=== PATIENT | female | born 1990 | race Caucasian/White ===

== ENCOUNTER → 2017-09-28 | Outpatient (CLI) | payer OTHER ==
[~2017-09-28] MED LIST: FIORICET 325 MG1 TA1 PO; GLUCOPHAGE500 MG/TAB PO; NORCO 325 MG-51 TAB PO; PRINIVIL5 MG PO; TOPAMAX 100MG100 M1 PO; ULTRAM 50MG TAB50 MG PO
== END ==
LOC: COL.RAD 08:18
DX: G93.2 Benign intracranial hypertension (principal)
CPT/HCPCS: Q9967

== ENCOUNTER → 2019-02-27 | Outpatient (CLI) | payer BC | LOC: MHCPAIN 13:36 | DX: G89.29 Other chronic pain (principal); M47.817 Spondylosis without myelopathy or radiculopathy, lumbosacral region; M54.16 Radiculopathy, lumbar region; M53.3 Sacrococcygeal disorders, not elsewhere classified | CPT/HCPCS: G0463 ==

== ENCOUNTER → 2019-03-13 | Outpatient (CLI) | payer BC ==
--- NOTE | 2019-03-08 09:09 | NUR ---
LMOM TO CALL BACK
[~2019-03-13] VITALS: Ht 167.6 cm; Wt 106.2 kg
[~2019-03-13] MED LIST changes: +EFFEXOR-XR150 MG PO; +NEURONTIN100 MG/CAP PO; +XANAX 0.5MG0.5 MG PO
[2019-03-13 14:03] VITALS: BP 127/77; PULSE 75
[2019-03-13 14:35] VITALS: BP 124/79; PULSE 81
== END ==
LOC: COL.RAD 13:30
DX: M48.061 Spinal stenosis, lumbar region without neurogenic claudication (principal); M51.26 Other intervertebral disc displacement, lumbar region; M51.36 Other intervertebral disc degeneration, lumbar region
CPT/HCPCS: J3301

== ENCOUNTER 2019-09-07 13:43 | Emergency (ER) | payer BC ==
[~2019-09-07] VITALS: Ht 167.6 cm; Wt 109.1 kg
[2019-09-07 14:36] LABS: BASO % 0.7 % (0.0-2.0); EOS # 0.1 (0.0-0.7); EOS % 1.4 % (0-4.0); GRAN % 68.6 % (42.2-75.2); HEMATOCRIT 44.7 % (37.0-47.0); HEMOGLOBIN 14.8 g/dl (12.5-16.0); LYMPH # 1.2 (1.2-3.4); LYMPH % 20.1 % (20.0-51.0); MEAN CELL VOLUME 89 fl (80.0-100.0); MEAN CORPUSCULAR HEMOGLOBIN 29 pg (27.0-31.0); MEAN CORPUSCULAR HGB CONC 33 g/dl (33.0-37.0); MEAN PLATELET VOLUME 9.4 fl (7.4-10.4); MONO # 0.5 (0.1-0.6); MONO % 8.7 % (1.7-9.3); PLATELET COUNT 228 K/mm3 (130-400); RED BLOOD COUNT 5.05 M/mm3 (4.10-5.30); REDCELL DISTRIBUTION WIDTH-CV 12.2 % (11.5-14.5)
[2019-09-07 14:47] LABS: ALANINE AMINOTRANSFERASE 48 U/L (9-52); ALBUMIN 4.6 gm/dL (3.5-5.0); ALKALINE PHOSPHATASE 90 U/L (50-136); ANION GAP 9 mmol/L (7-16); AST,SGOT 33 U/L (15-37); BILIRUBIN,TOTAL 0.4 mg/dL (0.0-1.0); BLOOD UREA NITROGEN 18 mg/dL (7-17); CALCIUM 9.5 mg/dL (8.4-10.2); CARBON DIOXIDE 24 mmol/L (22-30); CHLORIDE 108 mmol/L (98-107); CREATININE, serum 0.99 (0.52-1.25); GLUCOSE 106 mg/dL (74-106); POTASSIUM 3.6 mmol/L (3.4-5.0); SODIUM 140 mmol/L (137-145); TOTAL PROTEIN 8.1 gm/dL (6.4-8.2)
[2019-09-07 14:54] LABS: COLLECTION METHOD CLEAN CATCH
[2019-09-07 14:54] LABS: ACETAMINOPHEN < 10 ug/mL (10-30); ALCOHOL(ethanol),MEDICAL < 10 mg/dL; SALICYLATE < 1.0 mg/dL
[2019-09-07 15:11] LABS: PH 5 (5-8); SQUAMOUS EPITHELIAL 0-2 /hpf; URINE APPEARANCE Clear; URINE BACTERIA Rare /hpf; URINE BILIRUBIN Negative (NEGATIVE); URINE BLOOD Negative (NEGATIVE); URINE COLOR Straw; URINE GLUCOSE Negative (NEGATIVE); URINE KETONE Negative (NEGATIVE); URINE LEUKOCYTE ESTERASE Trace (NEGATIVE); URINE NITRATE Negative (NEGATIVE); URINE PROTEIN(semi-quant) Negative (NEGATIVE); URINE RBC 0-2 /hpf; URINE UROBILINOGEN Negative (NEGATIVE)
[2019-09-07 15:15] LABS: TRICYCLIC ANTIDEPRESS URINE NEGATIVE
[2019-09-07 17:49] VITALS: BP 131/98; PULSE 77
[2019-09-07 21:40] VITALS: TEMP 98.9
== END 2019-09-07 21:43 ==
LOC: COL.ER 13:43
PROVIDERS: Emergency Medicine
DX: R45.851 Suicidal ideations (principal); F32.9 Major depressive disorder, single episode, unspecified; E11.9 Type 2 diabetes mellitus without complications; F41.9 Anxiety disorder, unspecified; Z79.84 Long term (current) use of oral hypoglycemic drugs

== ENCOUNTER 2020-01-11 18:39 | Emergency (ER) | payer BC ==
[~2020-01-11] VITALS: Ht 165.1 cm; Wt 134.1 kg
[2020-01-11 18:49] VITALS: TEMP 98
[2020-01-11 19:54] LABS: BASO # 0.1 (0.0-0.2); BASO % 0.7 % (0.0-2.0); EOS # 0.1 (0.0-0.7); EOS % 1.4 % (0-4.0); GRAN % 56.7 % (42.2-75.2); HEMATOCRIT 44.5 % (37.0-47.0); HEMOGLOBIN 14.3 g/dl (12.5-16.0); LYMPH # 2.2 (1.2-3.4); LYMPH % 31.1 % (20.0-51.0); MEAN CELL VOLUME 83 fl (80.0-100.0); MEAN CORPUSCULAR HEMOGLOBIN 27 pg (27.0-31.0); MEAN CORPUSCULAR HGB CONC 32 g/dl (33.0-37.0); MEAN PLATELET VOLUME 9.6 fl (7.4-10.4); MONO # 0.7 (0.1-0.6); MONO % 9.7 % (1.7-9.3); PLATELET COUNT 287 K/mm3 (130-400); RED BLOOD COUNT 5.37 M/mm3 (4.10-5.30); REDCELL DISTRIBUTION WIDTH-CV 13.9 % (11.5-14.5)
[2020-01-11 20:07] LABS: ALANINE AMINOTRANSFERASE 18 U/L (4-34); ALBUMIN 4.3 gm/dL (3.5-5.0); ALKALINE PHOSPHATASE 90 U/L (50-136); ANION GAP 8 mmol/L (7-16); AST,SGOT 21 U/L (15-37); BILIRUBIN,TOTAL 0.4 mg/dL (0.0-1.0); BLOOD UREA NITROGEN 16 mg/dL (7-17); CALCIUM 9.8 mg/dL (8.4-10.2); CARBON DIOXIDE 25 mmol/L (22-30); CHLORIDE 106 mmol/L (98-107); CREATININE, serum 1.17 (0.52-1.25); GLUCOSE 111 mg/dL (74-106); POTASSIUM 4.1 mmol/L (3.4-5.0); SODIUM 139 mmol/L (137-145); TOTAL PROTEIN 7.9 gm/dL (6.4-8.2)
[2020-01-11 20:25] LABS: C-REACTIVE PROTEIN < 0.5 mg/dL (0.0-0.9); TROPONIN-I < 0.012 ng/mL (0.000-0.035)
[2020-01-11 21:10] VITALS: BP 124/78; PULSE 84
== END 2020-01-11 21:10 | disposition home or self-care (01) ==
LOC: COL.ER 18:39
PROVIDERS: Nurse Practitioner
DX: R07.89 Other chest pain (principal); F32.9 Major depressive disorder, single episode, unspecified; I10 Essential (primary) hypertension; E78.5 Hyperlipidemia, unspecified; F41.9 Anxiety disorder, unspecified; Z90.89 Acquired absence of other organs; Z87.891 Personal history of nicotine dependence; Z79.84 Long term (current) use of oral hypoglycemic drugs
CPT/HCPCS: J7030

== ENCOUNTER → 2020-02-13 | Outpatient (CLI) | payer BC | LOC: COL.RAD 12:33 | DX: R91.1 Solitary pulmonary nodule (principal); R07.1 Chest pain on breathing | CPT/HCPCS: Q9967 ==

== ENCOUNTER 2022-10-15 14:15 | Outpatient (RCR) | payer OTHER, BC ==
[~2022-10-15 14:15] MED LIST changes: +ATARAX 25MG25 MG/TAB PO; +KLONOPIN 1MG1 MG PO; +LUNESTA2 MG PO; +VIIBRYD40 MG PO; +WELLBUTRIN XL150 MG PO; +[UNRECOGNIZED DRUG - OTHER] PO
== END 2022-10-20 | disposition home or self-care (01) ==
LOC: WSPT
DX: M54.16 Radiculopathy, lumbar region (principal)

== ENCOUNTER → 2022-11-04 | Outpatient (REF) | payer BC ==
[~2022-11-04] MED LIST changes: +OMNICEF 300MG300 MG PO; +PHENERGAN25 MG RC
[2022-11-04 13:14] LABS: LYMPHOCYTE 31 % (20.0-51.0); NEUTROPHILS 60 % (42.0-75.2)
[2022-11-04 13:19] LABS: HYPOCHROMIA 1+; PLATELET ESTIMATE NORMAL (NORMAL)
== END ==
LOC: ZCOL.LAB 12:41
PROVIDERS: Family Medicine
DX: D50.0 Iron deficiency anemia secondary to blood loss (chronic) (principal)

== ENCOUNTER 2022-11-10 12:45 | Outpatient (RCR) | payer OTHER, BC ==
[~2022-11-10 12:45] MED LIST changes: +BACTRIM DS 8001 TAB PO; +PHENERGAN 25 TA25 MG PO; +TRANSDERM-0.5 MG/21 TD; +VRAYLAR3 MG PO; +ZOFRAN ODT4 MG PO; -[UNRECOGNIZED DRUG - OTHER] PO
[2022-11-11] MEDS ORDERED: VITAMIN D250 MCG PO (13:37)
[2022-11-14] MEDS ORDERED: ERY-TAB250 MG PO (10:13)
== END 2022-11-20 | disposition home or self-care (01) ==
LOC: WSC
DX: M54.16 Radiculopathy, lumbar region (principal)

== ENCOUNTER → 2022-11-23 | Outpatient (REF) | payer OTHER, BC ==
[~2022-11-23] MED LIST changes: +ERY-TAB250 MG PO; +VITAMIN D250 MCG PO
== END ==
LOC: ZCOL.LAB 11:30
DX: R07.82 Intercostal pain (principal); R06.02 Shortness of breath; R53.83 Other fatigue

== ENCOUNTER → 2023-09-30 | Outpatient (REF) | payer BC ==
[2023-09-30 11:48] LABS: BAND 1 % (0-10); EOSINOPHIL 3 % (0-4); LYMPHOCYTE 28 % (20.0-51.0); NEUTROPHILS 61 % (42.0-75.2); PLATELET ESTIMATE NORMAL (NORMAL)
== END ==
LOC: ZCOL.LAB 10:13
PROVIDERS: Family Medicine
DX: D50.0 Iron deficiency anemia secondary to blood loss (chronic) (principal)

== ENCOUNTER → 2024-02-15 | Outpatient (CLI) | payer BC ==
[~2024-02-15] MED LIST changes: +REVIA 50MG TABL50 MG PO; +SLYND4 MG PO; +VITAMIN D 50,1.25 MG PO
== END ==
LOC: MC.RAD 16:14
DX: Z12.31 Encounter for screening mammogram for malignant neoplasm of breast (principal)

== ENCOUNTER 2024-05-02 11:55 | Day surgery (SDC) | payer BC ==
--- NOTE | 2024-05-01 14:45 | NUR ---
1445: SPOKE WITH NANCY HI REGARDING SUICIDE SCREEN (C-SSRS) COMPLETED OVER THE PHONE TODAY (SEE ADULT ADMIT INTAKE). PATIENT ANSWERED YES TO LIFETIME QUESTION FOR EVER PREPARING TO END LIFE, PATIENT STATED THIS WAS "YEARS AGO". PATIENT ANSWERED "YES" WHEN ASKED IF SHE FELT SHE WAS RECEIVING ADEQUATE MENTAL HEALTH SERVICES CURRENTLY AND ANSWERED "YES" WHEN ASKED IF SHE FELT SAFE AT HOME. PER NANCY HI HE WOULD PREFER IF THE PATIENT'S PRIMARY CARE PROVIDER (DR.BETHANY BRAY) COMPLETE A SUICIDE RISK ASSESSMENT. 1454: CALL PLACED TO 'S OFFICE. UNABLE TO REACH PROVIDER. VOICEMAIL LEFT ON 'S NURSE LINE TO ADDRESS SITUATION. OUTPATIENT SURGERY NURSES STATION NUMBER PROVIDED FOR QUESTIONS. 1458: UPDATED HAND INSPECTOR ZOHREH Youngblood RN ON C-SSRS RESULTS AND CALLS PLACED TO PROVIDERS (NANCY HI AND 'S OFFICE). 1531: ANSWERED CALL FROM 'S OFFICE. PER , PATIENT HAS BEEN SEEN BY PROVIDER RECENTLY AND IS DEEMED LOW SUICIDE RISK. ANTOINE COFFEY WITH VERBALIZED THAT SHE WILL FAX A NOTE OVER STATING THIS FOR THE PATIENT'S CHART.
--- NOTE | 2024-05-01 15:49 | NUR ---
It is noted from staff that patient scored Moderate on her initial suicidal screening evaluation. Discussion had with Yordy CRUZ for Dr. Faria who requested that PCP make that decision of sucidal risk, Avery Mondragon RN spoke to PCP office who stated that patient was a low risk and was currently being treated appropriately outpatient. This RN called to speak to Yordy CRUZ to discuss low risk for suicide per PCP and at that time he gave a verbal order to keep the patient as a low suicide risk patient. Staff notified; will monitor upon arrival to facility.
[~2024-05-02] VITALS: Ht 165.1 cm; Wt 165.1 kg
[~2024-05-02 11:55] MED LIST changes: +LR 1,000 ML IV SCH; -REVIA 50MG TABL50 MG PO; -SLYND4 MG PO; -VITAMIN D 50,1.25 MG PO
[2024-05-02] MEDS ORDERED: fentaNYL 50 MCG/ML 5 ML VIAL ONE ×2 (13:48→15:17)
[2024-05-02] MEDS ORDERED: Lidocaine PF 2% (20 MG/ML) 5 ML VIAL ONE (13:48)
[2024-05-02] MEDS ORDERED: dexAMETHasone 10 MG/ML VIAL ONE (13:48)
[2024-05-02] MEDS ORDERED: Ketorolac 30 MG/ML VIAL ONE (13:48)
[2024-05-02] MEDS ORDERED: Ondansetron 4 MG/2 ML VIAL ONE (13:48)
[2024-05-02] MEDS ORDERED: NS 20 ML IV ONE (13:48)
[2024-05-02] MEDS ORDERED: Morphine 2 MG/1 ML VIAL [PACU/SDC ONLY] IV PRN (14:15)
[2024-05-02] MEDS ORDERED: fentaNYL 50 MCG/ML 1 ML SYRINGE/VIAL [PACU/SDC ONLY] IV PRN (14:15)
[2024-05-02] MEDS ORDERED: Ondansetron 4 MG/2 ML VIAL IV PRN (14:15)
[2024-05-02] MEDS ORDERED: hydrALAZINE 20 MG/ML 1 ML VIAL IV PRN (14:15)
[2024-05-02] MEDS ORDERED: droPERidol 2.5 MG/ML 2 ML VIAL IV PRN (14:15)
[2024-05-02] MEDS ORDERED: HYDROmorphone 1 MG/1 ML SYRINGE [PACU/SDC ONLY] IV PRN (14:15)
[2024-05-02] MEDS ORDERED: Meperidine 50 MG/ML 1 ML VIAL IV PRN (14:15)
[2024-05-02] MEDS ORDERED: VITAMIN D 50,1.25 MG PO (14:21)
[2024-05-02] MEDS ORDERED: REVIA 50MG TABL50 MG PO (14:21)
[2024-05-02] MEDS ORDERED: SLYND4 MG PO (14:22)
[2024-05-02 14:32] VITALS: BP 141/94; PULSE 94; TEMP 97.1
[2024-05-02] MEDS ORDERED: SUFentanil 50 MCG/1 ML VIAL IV ONE (15:31)
[2024-05-02 17:00] VITALS: BP 153/85; PULSE 80; TEMP 97.4
[2024-05-02 17:03] VITALS: TEMP 98.4
--- NOTE | 2024-05-02 17:10 | NUR ---
TELEPHONE ORDER RECEIVED FROM NANCY HI PER DR VORA FOR PT TO RECEIVE NORCO 5/325 PO 1 TAB BEFORE DISCHARGE.
[2024-05-02 17:15] VITALS: BP 161/86; PULSE 72
[2024-05-02 17:30] VITALS: BP 134/89; PULSE 74
--- NOTE | 2024-05-02 17:50 | NUR ---
1700 RETURNS TO ROOM 7 PER CART WITH HOB ELEVATED 60 DEGREES. AWAKE, AELRT RESP UNLABORED. VITAL SIGNA OBTAINED. GAGAN WRAPPED DRESSING RIGHT ARM CLEAN DRY AND INTACT. NEURO/CIRC CHECKS INTACT. SLIGHT EDEMA OF FINGERS. MOVES FINGERS WELL. REPORTS MILD DISCOMFORT 4/10. CALL LIGHT AT SIDE 1715 TOLERATES PO WATER AND JUICE WITHOUT NAUSEA. 1718 PO PAIN PILL (NORCO 5/325) GIVEN. PHONE ORDER RECEIVED BY ROBB COLE. UNABLE TO DOCUMENT IN COMPUTER SECONDARY TO DR VORA BE "ON DEVICE". 1725 DISCHARGE IBNSTRUCTIONS REVIEWED. PATIENT VERBALIZES UNDERSTANDING. COPY PROVIDED IN DISCHARGE FOLDER. 1740 SITS ON EDGE OF CART. DRESSES WITH ASSIST FROM THIS NURSE. SLING IN PLACE TO RIGHT ARM. GAGAN WRAPPED DRESSING CLEAN DRY AND INTACT.
== END 2024-05-02 17:50 | disposition home or self-care (01) ==
LOC: SDCO 11:55
PROVIDERS: Orthopaedic Surgery Sports Medicine
DX: G56.21 Lesion of ulnar nerve, right upper limb (principal); G56.01 Carpal tunnel syndrome, right upper limb; G56.02 Carpal tunnel syndrome, left upper limb
CPT/HCPCS: J0665; J0690; J1100; J1885; J2405; J3010; J7120